=== PATIENT | male | born 1985 | race Caucasian/White ===

== ENCOUNTER 2017-08-17 17:21 | Emergency (ER) | payer MEDICAID ==
[~2017-08-17] VITALS: Ht 185.4 cm; Wt 97.1 kg
[2017-08-17 17:30] VITALS: Ht 185.4 cm; Wt 97.1 kg
[2017-08-17 18:49] VITALS: BP 146/80
== END 2017-08-17 19:05 | disposition home or self-care (01) ==
LOC: ED 17:21
DX: S93.401A Sprain of unspecified ligament of right ankle, initial encounter (principal); W10.8XXA Fall (on) (from) other stairs and steps, initial encounter; Y93.89 Activity, other specified; Y92.89 Other specified places as the place of occurrence of the external cause; Y99.8 Other external cause status
CPT/HCPCS: Q0092

== ENCOUNTER 2017-10-27 15:56 | Emergency (ER) | payer MEDICAID ==
[~2017-10-27] VITALS: Ht 185.4 cm; Wt 97.5 kg
[2017-10-27 16:04] VITALS: Ht 185.4 cm; Wt 97.5 kg
[2017-10-27 18:28] VITALS: BP 138/81
== END 2017-10-27 18:28 | disposition home or self-care (01) ==
LOC: ED 15:56
DX: S93.402A Sprain of unspecified ligament of left ankle, initial encounter (principal); X58.XXXA Exposure to other specified factors, initial encounter; Y93.89 Activity, other specified; Y92.89 Other specified places as the place of occurrence of the external cause; Y99.8 Other external cause status
CPT/HCPCS: Q0092

== ENCOUNTER 2017-11-11 19:13 | Emergency (ER) | payer MEDICAID ==
[~2017-11-11] VITALS: Ht 185.4 cm; Wt 100.2 kg
[2017-11-11 19:31] VITALS: Ht 185.4 cm; Wt 100.2 kg
[2017-11-11 21:32] VITALS: BP 128/81
== END 2017-11-11 21:32 | disposition home or self-care (01) ==
LOC: ED 19:13
DX: S05.02XA Injury of conjunctiva and corneal abrasion without foreign body, left eye, initial encounter (principal); X58.XXXA Exposure to other specified factors, initial encounter; Y93.89 Activity, other specified; Y92.89 Other specified places as the place of occurrence of the external cause; Y99.8 Other external cause status

== ENCOUNTER 2017-11-17 20:40 | Emergency (ER) | payer MEDICAID ==
[~2017-11-17] VITALS: Ht 185.4 cm; Wt 96.3 kg
[2017-11-17 21:03] VITALS: Ht 185.4 cm; Wt 96.3 kg
[2017-11-17 23:04] LABS: CALCIUM 7.8 mg/dL (8.5-10.1); CARBON DIOXIDE 23.6 mmol/L (21-32); CHLORIDE SERUM 103 mmol/L (98-107); CREATININE SERUM 0.8 mg/dL (0.7-1.3); GFR1 > 60 mL/min; GLUCOSE SERUM 106 mg/dL (74-106); PLATELET COUNT 169 x10^3mcL (130-400); POTASSIUM SERUM 3.2 mmol/L (3.5-5.1); RED CELL DISTRIBUTION WIDTH 12.6 % (11.5-14.5); SODIUM SERUM 134 mmol/L (136-145)
[2017-11-17 23:08] LABS: ALBUMIN 3.7 g/dL (3.4-5.0); ALKALINE PHOSPHATASE 100 U/L (46-116); ALT/SGPT 30 U/L (16-63); AMYLASE 48 U/L (25-115); AST/SGOT 25 U/L (15-37); BILIRUBIN TOTAL 0.7 mg/dL (0.20-1.00); LIPASE 69 IU/L (73-393); TOTAL PROTEIN, SERUM 7.6 g/dL (6.4-8.2)
[2017-11-17 23:09] LABS: BASOPHIL % 0 % (0-2)
[2017-11-18 01:21] VITALS: BP 105/55
== END 2017-11-18 01:21 | disposition home or self-care (01) ==
LOC: ED 20:40
PROVIDERS: Emergency Medicine
DX: R10.13 Epigastric pain (principal); R11.10 Vomiting, unspecified; R19.7 Diarrhea, unspecified; E86.0 Dehydration; E87.6 Hypokalemia
CPT/HCPCS: 83880; 87046; 87046-59; J2270; J2405; J7030

== ENCOUNTER 2017-12-09 17:58 | Emergency (ER) | payer MEDICAID ==
[~2017-12-09] VITALS: Ht 185.4 cm; Wt 102.0 kg
[2017-12-09 18:15] VITALS: Ht 185.4 cm; Wt 102.0 kg
[2017-12-09 20:50] VITALS: BP 143/92
== END 2017-12-09 20:50 | disposition home or self-care (01) ==
LOC: ED 17:58
DX: S80.811A Abrasion, right lower leg, initial encounter (principal); X58.XXXA Exposure to other specified factors, initial encounter; Y93.89 Activity, other specified; Y92.89 Other specified places as the place of occurrence of the external cause; Y99.8 Other external cause status

== ENCOUNTER 2018-02-20 22:33 | Emergency (ER) | payer MEDICAID ==
[~2018-02-20] VITALS: Ht 185.4 cm; Wt 98.0 kg
[2018-02-20 22:42] VITALS: Ht 185.4 cm; Wt 98.0 kg
[2018-02-20 23:39] VITALS: BP 135/83
== END 2018-02-20 23:39 | disposition home or self-care (01) ==
LOC: ED 22:33
DX: S80.12XA Contusion of left lower leg, initial encounter (principal); W22.8XXA Striking against or struck by other objects, initial encounter; Y93.39 Activity, other involving climbing, rappelling and jumping off; Y92.89 Other specified places as the place of occurrence of the external cause; Y99.8 Other external cause status
CPT/HCPCS: Q0092